=== PATIENT | male | born 2000 | race African-American/Black ===

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

== ENCOUNTER 2019-04-01 18:30 | Emergency (ER) | payer MEDICAID ==
[~2019-04-01] VITALS: Ht 175.3 cm; Wt 84.1 kg
[2019-04-01 18:50] VITALS: Ht 175.3 cm; Wt 84.1 kg
[2019-04-01] MEDS ORDERED: TORADOL10 MG PO (21:18)
[2019-04-01 21:31] VITALS: BP 125/74
== END 2019-04-01 21:31 | disposition home or self-care (01) ==
LOC: D.ER 18:30
DX: R51 Headache (principal); V43.52XA Car driver injured in collision with other type car in traffic accident, initial encounter; Y93.89 Activity, other specified; Y92.410 Unspecified street and highway as the place of occurrence of the external cause

== ENCOUNTER 2020-01-24 16:03 | Emergency (ER) | payer OTHER ==
[~2020-01-24] VITALS: Ht 175.3 cm; Wt 83.6 kg
[~2020-01-24 16:03] MED LIST: TORADOL10 MG PO
[2020-01-24 16:18] VITALS: Ht 175.3 cm; Wt 83.6 kg
[2020-01-24] MEDS ORDERED: FLUTICASONE PRO16 GM NASAL (17:55)
[2020-01-24] MEDS ORDERED: AUGMENTIN 875-11 TAB PO (17:55)
[2020-01-24 18:09] VITALS: BP 124/68
== END 2020-01-24 18:10 | disposition home or self-care (01) ==
LOC: D.ER 16:03
DX: J01.90 Acute sinusitis, unspecified (principal); Z72.0 Tobacco use; R51 Headache; R68.89 Other general symptoms and signs; R05 Cough; R11.0 Nausea; J02.9 Acute pharyngitis, unspecified; R50.9 Fever, unspecified

== ENCOUNTER 2020-12-05 11:44 | Emergency (ER) | payer OTHER ==
[~2020-12-05] VITALS: Ht 175.3 cm; Wt 75.0 kg
[~2020-12-05 11:44] MED LIST changes: +AUGMENTIN 875-11 TAB PO; +FLUTICASONE PRO16 GM NASAL
[2020-12-05 11:51] VITALS: BP 105/54; Ht 175.3 cm; Wt 75.0 kg
== END 2020-12-05 12:04 | disposition home or self-care (01) ==
LOC: D.ER 11:44
DX: Z71.1 Person with feared health complaint in whom no diagnosis is made (principal)

== ENCOUNTER 2021-01-22 03:23 | Emergency (ER) | payer OTHER ==
[~2021-01-22] VITALS: Ht 175.3 cm; Wt 72.7 kg
[2021-01-22 03:38] VITALS: BP 120/58; Ht 175.3 cm; Wt 72.7 kg
[2021-01-22 04:25] LABS: BASOPHILS 0.3 % (0-2); EOSINOPHILS 0.1 % (0-7); HEMATOCRIT 43.9 % (42.0-54.0); HEMOGLOBIN 14.5 g/dL (13.5-17.5); MCH 28.1 pg (26.0-34.0); MCHC 33.1 g/dL (31.0-37.0); MCV 84.8 fL (80.0-100.0); MEAN PLATELET VOLUME 7.4 fL (7.4-10.4); MONOCYTES 3.9 % (2-11); NEUTROPHILS 91.7 % (40-80); PLATELET COUNT 286 10x3/uL (130-400); RBC 5.18 10x6/uL (4.20-6.10); RDW 13.6 % (11.5-14.5); WBC 8.3 10x3/uL (4.8-10.8)
[2021-01-22 04:36] LABS: CALC OSMOLALITY 274 mosm/kg (275-300); CALCIUM 9.6 mg/dL (8.5-10.1); CARBON DIOXIDE 23.1 mmol/L (21.0-32.0); CHLORIDE - SERUM 102 mmol/L (98-107); CREATININE - SERUM 1.1 mg/dL (0.6-1.3); GLUCOSE 100 mg/dL (74-106); POTASSIUM - SERUM 3.6 mmol/L (3.5-5.1); SODIUM 138 mmol/L (136-145); UREA NITROGEN 11 mg/dL (7-18); eGFR NON AFRICAN AMERICAN 90 mL/min (90-120)
[2021-01-22 04:49] LABS: ALBUMIN 4.6 g/dL (3.4-5.0); ALKALINE PHOSPHATASE 53 U/L (30-120); ALT (SGPT) 28 U/L (10-68); BILIRUBIN - TOTAL 0.65 mg/dL (0.2-1.3); LIPASE 53 U/L (73-393)
[2021-01-22 06:59] LABS: BACTERIA FEW HPF (<MOD); BILIRUBIN NEGATIVE (NEGATIVE); KETONE 1+ mg/dL (< 1+); NITRITE NEGATIVE (NEGATIVE); PH 6.5 (5.0-8.0); UROBILINOGEN NORMAL mg/dL (< 2); WHITE CELLS - URINE 2 HPF (0-1)
== END 2021-01-22 07:19 | disposition home or self-care (01) ==
LOC: D.ER 03:23
PROVIDERS: Family Medicine
DX: R10.84 Generalized abdominal pain (principal)